=== PATIENT | female | born 2000 | race Hispanic/Latino ===

== ENCOUNTER 2018-10-21 15:48 | Emergency (ER) | payer OTHER ==
[2018-10-21 16:27] LABS: Bilirubin Negative (Negative); Blood, Urine Large (Negative); Clarity Cloudy (Clear); Glucose, Urine (Dipstick) Negative (Negative); Leukocyte Large (Negative); Nitrite Positive (Negative); Pregnancy Test - Urine (BHCG) Negative (Negative); Protein, Urine (Dipstick) 30 mg/dL (Neg-Trace); Specific Gravity, Urine 1.025 (1.005-1.030)
[2018-10-21 16:28] LABS: Pregu Control Background? CLEAR/WHITE (CLR/WHITE); Pregu Control Bar Appear? YES (CONTROL BAR); Specific Gravity 1.025 (1.002-1.036)
[2018-10-21 16:30] LABS: Bacteria/HPF 2+ HPF (None Seen)
[2018-10-21 16:31] LABS: Crystals/HPF 2+ AMORPH PHOS HPF (Negative); RBC/HPF 21-50 HPF (0-3)
[2018-10-21] MEDS ORDERED: Ondansetron ODT 4 MG TAB ONE (16:34)
[2018-10-21] MEDS ORDERED: cefTRIAXone\\ROCEPHIN 1 GM VIAL ONE (16:34)
[2018-10-21] MEDS ORDERED: Lidocaine 1% 20 ML MDV ONE (16:35)
== END 2018-10-21 17:00 | disposition home or self-care (01) ==
LOC: MADERS 15:48
DX: N39.0 Urinary tract infection, site not specified (principal)
CPT/HCPCS: 81003; 81015; 81025; 96372; J0696; J2001; Q0162